=== PATIENT | male | born 1995 | race African-American/Black ===

== ENCOUNTER 2016-10-27 20:08 | Emergency (ER) | payer SELFPAY ==
[~2016-10-27] VITALS: Ht 180.3 cm; Wt 77.1 kg
[2016-10-27 20:10] VITALS: BP 159/93; PULSE 100; RESP 23; TEMP 97.9; O2SAT 98
--- NOTE | 2016-10-27 20:10 | NUR ---
Verbal report given to Xander ERAZO
--- NOTE | 2016-10-27 20:10 | NUR ---
Patient to ER bed 1 to gown for evaluation. Side rails up. .
--- NOTE | 2016-10-27 20:20 | NUR ---
Pt came from the nursing home. Pt states he had a episode of SOB approx 30 mins ago per pt. Lung sounds clear in all lobes. Denies dyspnea at this time. Pt is breathing easy. Will continue to monitor. No other injuries or complaints mentioned/noted. No distress noted.
--- NOTE | 2016-10-27 20:27 | NUR ---
ER Dr. Lin at bedside examining patient.
[2016-10-27] MEDS ORDERED: IPRATROPIUM/ALBUTEROL SULFATE 3 ML AMPUL.NEB INH ONE (20:45)
[2016-10-27 20:59] LABS: BASOPHILS # (AUTO) 0.1 K/uL (0.0-0.2); BASOPHILS % (AUTO) 0.6 % (0.0-2.0); EOSINOPHILS # (AUTO) 0.2 K/uL (0.0-0.4); EOSINOPHILS % (AUTO) 2.3 % (0.0-4.0); HEMATOCRIT 41.6 % (36-54); HEMOGLOBIN 13.7 g/dL (14.0-18.0); LYMPHOCYTES # (AUTO) 3.3 K/uL (1.0-5.5); LYMPHOCYTES % (AUTO) 36.1 % (20.5-51.5); MEAN CORPUSCULAR HEMOGLOBIN 26 pg (27-31); MEAN CORPUSCULAR HGB CONC 33 % (32-36); MEAN CORPUSCULAR VOLUME 80 fL (79.0-98.0); MONOCYTES # (AUTO) 1.3 K/uL (0.0-1.0); MONOCYTES % (AUTO) 14.9 % (1.7-9.3); NEUTROPHILS # (AUTO) 4.1 K/uL (1.8-7.7); NEUTROPHILS % (AUTO) 46.1 % (40.0-70.0); PLATELET COUNT (AUTO) 257 K/uL (130-430); RED CELL DISTRIBUTION WIDTH 13.4 % (9.0-15.0)
[2016-10-27 21:02] LABS: CALCIUM 9.5 mg/dL (8.4-11.0); CREATININE 0.98 mg/dL (0.55-1.30); POTASSIUM 3.2 mmol/L (3.5-5.1)
[2016-10-27 21:05] LABS: PROTHROMBIN TIME 10.4 SECS (9.5-12.5)
[2016-10-27 21:06] LABS: ALBUMIN 4.2 g/dL (3.4-4.8); TOTAL BILIRUBIN 1.3 mg/dL (0.0-1.0); TOTAL PROTEIN, SERUM 7.3 g/dL (6.4-8.3)
[2016-10-27] MEDS ORDERED: POTASSIUM CHLORIDE 20 MEQ TAB.PRT.SR PO ONE (21:45)
[2016-10-27 22:30] VITALS: BP 145/84; PULSE 88; RESP 23; TEMP 97.9
--- NOTE | 2016-10-27 22:30 | NUR ---
Patient given written and verbal discharge instructions and verbalizes understanding. ER MD discussed with patient the results and treatment provided. Patient in stable condition. ID arm band removed. Patient educated on pain management and to follow up with PMD. Pain Scale 0/10. Opportunity for questions provided and answered. Dr. Delia bryan discharging without urine test.
[2016-11-02 08:05] VITALS: O2SAT 98
== END 2016-10-27 22:30 ==
LOC: SED 20:08 → EDBD 20:08 → SED 22:30
DX: F41.9 Anxiety disorder, unspecified (principal); E87.6 Hypokalemia; D64.9 Anemia, unspecified
CPT/HCPCS: 36415; 71010; 80053; 80061; 83880; 84484; 85025; 85379; 85610-TC; 85730-TC; 93005; 94640; 99285